=== PATIENT | female | born 1985 | race Caucasian/White ===

== ENCOUNTER → 2016-07-15 | Outpatient (CLI) | payer OTHER ==
[~2016-07-15] MED LIST: OMEPRAZOLE20 MG PO; PROBIOTIC1 EAC1 PO; THERA M PLUS T1 EACH PO; VITAMIN B122500 MCG PO; WELCHOL625 MG PO
== END | disposition short-term general hospital (02) ==
LOC: CLOBGYN 09:48
DX: Z09 Encounter for follow-up examination after completed treatment for conditions other than malignant neoplasm (principal)